=== PATIENT | male | born 1960 | race Caucasian/White ===

== ENCOUNTER 2019-12-27 09:08 | Emergency (ER) | payer BC, OTHER ==
[~2019-12-27] VITALS: Ht 188 cm; Wt 145.1 kg
[2019-12-27 09:14] VITALS: Ht 188 cm; Wt 145.1 kg
[2019-12-27 09:57] LABS: BASOPHIL % 0.4 % (0-2); PLATELET COUNT 207 x10^3mcL (130-400); RED CELL DISTRIBUTION WIDTH 13.3 % (11.5-14.5)
[2019-12-27 10:22] LABS: CALCIUM 9.1 mg/dL (8.5-10.1); CARBON DIOXIDE 27.8 mmol/L (21-32); CHLORIDE SERUM 103 mmol/L (98-107); CREATININE SERUM 1.3 mg/dL (0.7-1.3); GFR1 > 60 mL/min; GLUCOSE SERUM 133 mg/dL (74-106); POTASSIUM SERUM 3.8 mmol/L (3.5-5.1); SODIUM SERUM 140 mmol/L (136-145)
[2019-12-27 10:26] LABS: ALKALINE PHOSPHATASE 103 U/L (46-116); ALT/SGPT 96 U/L (16-63); AST/SGOT 41 U/L (15-37); BILIRUBIN TOTAL 0.6 mg/dL (0.20-1.00); LIPASE 134 IU/L (73-393); TOTAL PROTEIN, SERUM 7.5 g/dL (6.4-8.2)
[2019-12-27 10:27] LABS: CHOLESTEROL 214 mg/dL (<200); CHOLESTEROL/HDL RATIO 6.9; HDL CHOLESTEROL 31 mg/dL (40-60); TRIGLYCERIDES 214 mg/dL (<150)
[2019-12-27 10:55] LABS: microscopic required? YES; urine erythrocyte 2+ (NEGATIVE)
[2019-12-27 12:16] VITALS: BP 134/83
== END 2019-12-27 12:16 | disposition home or self-care (01) ==
LOC: ED 09:08
PROVIDERS: Specialist
DX: N23 Unspecified renal colic (principal); J45.909 Unspecified asthma, uncomplicated
CPT/HCPCS: J1885; J2270; J2405; J7030; Q0092